=== PATIENT | female | born 1970 | race Two or more races ===

== ENCOUNTER → 2019-06-16 | Emergency (ER) | payer BC, OTHER ==
[~2019-06-16] VITALS: Ht 160 cm; Wt 102.1 kg
[~2019-06-16] MED LIST: HYDROmorphone HCL 2 MG/ML VL IV ONE; MIDAZOLAM HCL 5 MG/ML-1ML VIAL IV ONE; MORPHINE SULFATE 4 MG/ML SYR/VIAL IV ONE; ONDANSETRON HCL 4 MG/2 ML VIAL IV ONE; fentaNYL CITRATE 100 MCG/2 ML VL IV ONE
[2019-06-16 14:15] VITALS: BP 121/77
== END | disposition home or self-care (01) ==
LOC: ER 11:34 → EDBD 11:34
DX: S43.004A Unspecified dislocation of right shoulder joint, initial encounter (principal); W07.XXXA Fall from chair, initial encounter; Y93.89 Activity, other specified; Y92.009 Unspecified place in unspecified non-institutional (private) residence as the place of occurrence of the external cause; Y99.8 Other external cause status
CPT/HCPCS: 23650; 73020; 73030; 73060; 96374; 96375; 99284; J1170; J2270; J2405